=== PATIENT | female | born 1980 | race Caucasian/White ===

== ENCOUNTER 2018-05-04 22:42 | Emergency (ER) | payer OTHER ==
[~2018-05-04] VITALS: Ht 167.6 cm; Wt 113.7 kg
[2018-05-04 22:43] VITALS: BP 157/119
[2018-05-05] MEDS ORDERED: IBUPROFEN 200 MG TABLET ONE (00:02)
[2018-05-05] MEDS ORDERED: IBUPROFEN 800 MG TABLET PO ONE (00:30)
== END 2018-05-05 00:53 | disposition home or self-care (01) ==
LOC: ED 23:59
DX: S62.521A Displaced fracture of distal phalanx of right thumb, initial encounter for closed fracture (principal); W18.39XA Other fall on same level, initial encounter; Y93.89 Activity, other specified; Y92.098 Other place in other non-institutional residence as the place of occurrence of the external cause; Y99.8 Other external cause status
CPT/HCPCS: 29125; 99284

== ENCOUNTER 2019-06-12 22:40 | Emergency (ER) | payer MEDICAID, OTHER ==
[~2019-06-12] VITALS: Ht 167.6 cm; Wt 119.5 kg
[2019-06-12 22:41] VITALS: BP 151/108
== END 2019-06-13 00:29 | disposition home or self-care (01) ==
LOC: ED 23:59
DX: R55 Syncope and collapse (principal); R11.2 Nausea with vomiting, unspecified; W01.0XXA Fall on same level from slipping, tripping and stumbling without subsequent striking against object, initial encounter; Y93.89 Activity, other specified; Y92.89 Other specified places as the place of occurrence of the external cause; Y99.8 Other external cause status
CPT/HCPCS: 36415; 70450; 80048; 82040; 84703; 85025; 99284